=== PATIENT | female | born 1975 | race Caucasian/White ===

== ENCOUNTER 2017-01-02 22:06 | Emergency (ER) | payer MEDICAID ==
[2017-01-02 22:06] VITALS: BP 153/89; PULSE 102; RESP 20; TEMP 98.8; O2SAT 100
== END 2017-01-02 22:40 | disposition left against medical advice (07) ==
LOC: NED 22:06
DX: R10.9 Unspecified abdominal pain (principal)
CPT/HCPCS: 99281

== ENCOUNTER 2017-02-24 18:44 | Emergency (ER) | payer MEDICAID ==
[2017-02-24 18:45] VITALS: BP 142/85; PULSE 99; RESP 20; TEMP 97.8; O2SAT 100
[2017-02-24] MEDS ORDERED: ONDANSETRON HCL 4 MG/2 ML VIAL IV PUSH ONE (19:30)
[2017-02-24] MEDS ORDERED: MORPHINE SULFATE 4 MG/ML INJ IV PUSH ONE ×2 (19:30→21:30)
--- NOTE | 2017-02-24 21:03 | RADRPT ---
EXAM DATE/TIME: 02/24/2017 20:33 [place] COMPARISON: No previous studies available for comparison. INDICATIONS : Back pain. ORAL CONTRAST: No oral contrast ingested. RADIATION DOSE: 9.77 CTDIvol (mGy) MEDICAL HISTORY : None SURGICAL HISTORY : section. ENCOUNTER: Initial ACUITY: 1 day PAIN SCALE: 10/10 LOCATION: [facility] TECHNIQUE: Volumetric scanning of the abdomen and pelvis was performed. Using automated exposure control and ad justment of the mA and/or kV according to patient size, radiation dose was kept as low as reasonably achievable to obtain optimal diagnostic quality images. DICOM format image data is available electro nically for review and comparison. FINDINGS: LOWER LUNGS: The visualized lower lungs are clear. LIVER: Homogeneous density without lesion. There is no dilation of the biliary tree. No calcified gallston es. SPLEEN: Normal size without lesion. PANCREAS: Within normal limits. KIDNEYS: There is a 4 mm calcification in the right upper kidney representing either a cortical calcification or nonobstructing stone. There is a 2.4 cm low-density mass seen in the superior medial right kidney. This measures water density on this noncontrast CT examination. No hydronephrosis is seen on either side. ADRENAL GLANDS: Within normal limits. VASCULAR: There is no aortic aneurysm. BOWEL/MESENTERY: The stomach, small bowel, and colon demonstrate no acute abnormality. There is no free intraperitone al air or fluid. The appendix is normal. ABDOMINAL WALL: Within normal limits. RETROPERITONEUM: There is no lymphadenopathy. BLADDER: No wall thickening or mass. REPRODUCTIVE: Within normal limits. There are calcifications in the pelvis likely related to phleboliths. A definit e ureteral stone is not seen. INGUINAL: There is no lymphadenopathy or hernia. MUSCULOSKELETAL: There is disc space loss of height at the L4-L5 and L5-S1 level with disc bulging and marginal osteop hytes. CONCLUSION: 1. No acute abnormality seen. 2. 4 mm calcification at the right upper kidney representing either a cortical calcification or nonob structing stone. 3. 2.4 cm nonspecific low density mass in the superior-medial right kidney. It likely represents a cy st. 4. Degenerative change at the lower lumbar spine. Cyrus Woodard MD on February 24, 2017 at 20:55 Board Certified Radiologist. This report was verified electronically.
[2017-02-24 21:05] VITALS: BP 128/74; PULSE 98; RESP 16; O2SAT 99
[2017-02-24 21:25] LABS: BASOPHIL % 0.5 % (0.0-2.0); EOSINOPHIL # 0.2 TH/MM3 (0-0.4); EOSINOPHIL % 1.9 % (0.0-4.0); HEMATOCRIT 38.2 % (35.0-46.0); HEMO FLAGS DIFF FINAL; LYMPHOCYTE # 2.3 TH/MM3 (1.0-4.8); MEAN CELL VOLUME 90.9 FL (80.0-100.0); MEAN CORPUSCULAR HEMOGLOBIN 31.2 PG (27.0-34.0); MEAN CORPUSCULAR HGB CONC 34.3 % (32.0-36.0); MONO % 6.1 % (0.0-8.0); NEUT % 66.5 % (16.0-70.0); PLATELET COUNT 246 TH/MM3 (150-450); RED CELL DISTRIBUTION WIDTH 12.7 % (11.6-17.2)
--- NOTE | 2017-02-24 21:28 | PD ---
HPI Chief Complaint: Flank/Kidney Pain Time Seen by Provider: 19:13 Travel History International Travel<30 days: No Contact w/Intl Traveler<30days: No Traveled to known affect area: No History of Present Illness HPI 41-year-old female that presents to the ED for evaluation of lower back pain and urinary symptoms as well as vaginal discharge. Per patient she's had this since 1:00 today. She denies any chest pain or shortness of breath. No nausea or vomiting. Per patient she's never had pain like this before. Per patient she's had some discharge as well and it is foul-smelling. Her urine is also foul-smelling. She states the pain is 10 out of 10. She denies any injuries. No bowel movement issues. She states that she currently has a boyfriend and she is not sure if he gave her something. He has not seen anybody for this. Pain mainly on the lower back but also on the front. Has not taken anything for this. PFSH Past Medical History Bipolar Disorder: Yes Diminished Hearing: No Hepatitis: Yes (C) ?: Not : 2 Para: 2 Past Surgical History Section: Yes Gynecologic Surgery: Yes (C- SECTION) Social History Alcohol Use: No Tobacco Use: Yes (6 cigarettes) Substance Use: No Allergies-Medications (Allergen,Severity, Reaction): Coded Allergies: No Known Allergies (Unverified Adverse Reaction, Unknown, 02/24/17) Reported Meds & Prescriptions Reported Meds & Active Scripts Active Tramadol (Tramadol HCl) 50 Mg Tab 50 Mg PO Q6H PRN Ibuprofen 800 Mg Tab 800 Mg PO Q8H PRN Doxycycline Hyclate 100 Mg Cap 100 Mg PO BID 10 Days Keflex (Cephalexin) 500 Mg Cap 500 Mg PO Q12H 10 Days Review of Systems Except as stated in HPI: all other systems reviewed are Neg Physical Exam Narrative GENERAL: SKIN: Warm and dry. HEAD: Atraumatic. Normocephalic. EYES: Pupils equal and round. No scleral icterus. No injection or drainage. ENT: No nasal bleeding or discharge. Mucous membranes pink and moist. Tongue is midline. No uvula deviation. NECK: Trachea midline. No JVD. CARDIOVASCULAR: Regular rate and rhythm. No murmurs, S3, S4 RESPIRATORY: No accessory muscle use. Clear to auscultation. Breath sounds equal bilaterally. GASTROINTESTINAL: Abdomen soft, non-tender, nondistended. Hepatic and splenic margins not palpable. Pelvic exam: Patient seen with female nurse present. Patient does have whitish discharge coming from the cervix. No adnexal tenderness. No cervical tenderness. MUSCULOSKELETAL: Extremities without clubbing, cyanosis, or edema. No obvious deformities. Full range of motion of the upper and lower extremities bilaterally. 2+ pulses bilaterally. NEUROLOGICAL: Awake and alert. No obvious cranial nerve deficits. Motor grossly within normal limits. Five out of 5 muscle strength in the arms and legs. Normal speech. PSYCHIATRIC: Appropriate mood and affect; insight and judgment normal. Data Data Last Documented VS Vital Signs Date Time Temp Pulse Resp B/P (MAP) Pulse Ox O2 Delivery O2 Flow Rate FiO2 02/24/17 21:05 98 16 128/74 (92) 99 Room Air 02/24/17 18:45 97.8 Orders Orders Urinalysis - C+S If Indicated (02/24/17 18:52) Complete Blood Count With Diff (02/24/17 19:17) Basic Metabolic Panel (Bmp) (02/24/17 19:17) Wet Prep Profile (02/24/17 19:17) Gc And Chlamydia Pcr (02/24/17 19:17) Iv Access Insert/Monitor (02/24/17 19:17) Ed Urine Pregnancytest Poc (02/24/17 19:17) Morphine Inj (Morphine Inj) (02/24/17 19:30) Ondansetron Inj (Zofran Inj) (02/24/17 19:30) Ct Abd/Pel W/O Iv Contrast (02/24/17 ) Ketorolac Inj (Toradol Inj) (02/24/17 21:30) Morphine Inj (Morphine Inj) (02/24/17 21:30) Urinalysis - C+S If Indicated (02/24/17 21:19) Ceftriaxone Inj (Rocephin Inj) (02/24/17 22:15) Doxycycline (Vibramycin) (02/24/17 22:15) Ceftriaxone Inj (Rocephin Inj) (02/24/17 22:15) Urine Culture (02/24/17 21:25) Ed Discharge Order (02/24/17 22:20) Labs Laboratory Tests Test 02/24/17 20:30 02/24/17 21:20 02/24/17 21:25 White Blood Count 9.0 TH/MM3 Red Blood Count 4.20 MIL/MM3 Hemoglobin 13.1 GM/DL Hematocrit 38.2 % Mean Corpuscular Volume 90.9 FL Mean Corpuscular Hemoglobin 31.2 PG Mean Corpuscular Hemoglobin Concent 34.3 % Red Cell Distribution Width 12.7 % Platelet Count 246 TH/MM3 Mean Platelet Volume 8.2 FL Neutrophils (%) (Auto) 66.5 % Lymphocytes (%) (Auto) 25.0 % Monocytes (%) (Auto) 6.1 % Eosinophils (%) (Auto) 1.9 % Basophils (%) (Auto) 0.5 % Neutrophils # (Auto) 6.0 TH/MM3 Lymphocytes # (Auto) 2.3 TH/MM3 Monocytes # (Auto) 0.6 TH/MM3 Eosinophils # (Auto) 0.2 TH/MM3 Basophils # (Auto) 0.0 TH/MM3 CBC Comment DIFF FINAL Differential Comment Blood Urea Nitrogen 14 MG/DL Creatinine 0.79 MG/DL Random Glucose 73 MG/DL Calcium Level 8.5 MG/DL Sodium Level 136 MEQ/L Potassium Level 3.7 MEQ/L Chloride Level 103 MEQ/L Carbon Dioxide Level 27.8 MEQ/L Anion Gap 5 MEQ/L Estimat Glomerular Filtration Rate 81 ML/MIN Clue Cells (Wet Prep) NONE SEEN Vaginal Trichomonas (Wet Prep) NONE SEEN Vaginal Yeast (Wet Prep) NONE SEEN Urine Color LIGHT-YELLOW Urine Turbidity HAZY Urine pH 6.0 Urine Specific [place] 1.009 Urine Protein NEG mg/dL Urine Glucose (UA) NEG mg/dL Urine Ketones NEG mg/dL Urine Occult Blood NEG Urine Nitrite POS Urine Bilirubin NEG Urine Urobilinogen LESS THAN 2.0 MG/DL Urine Leukocyte Esterase MOD Urine RBC LESS THAN 1 /hpf Urine WBC 6 /hpf Urine Squamous Epithelial Cells <1 /hpf Urine Amorphous Sediment RARE Urine Bacteria MANY /hpf Microscopic Urinalysis Comment CULTURE INDICATED MDM Medical Decision Making Medical Screen Exam Complete: Yes Emergency Medical Condition: Yes Medical Record Reviewed: Yes Interpretation(s) Last Impressions Abdomen/Pelvis CT 02/24/17 0000 Signed Impressions: Service Date/Time: February 20:33 - CONCLUSION: 1. No acute abnormality seen. 2. 4 mm calcification at the right upper kidney representing either a cortical calcification or nonobstructing stone. 3. 2.4 cm nonspecific low density mass in the superior-medial right kidney. It likely represents a cyst. 4. Degenerative change at the lower lumbar spine. Cyrus Woodard MD CBC & BMP Diagram 02/24/17 20:30 Calcium Level 8.5 UA shows UTI wet prep negative Differential Diagnosis Vaginal discharge versus PID versus UTI versus pyelonephritis versus cystitis versus kidney stone Narrative Course 41-year-old female that presents to the ED for evaluation of back pain. Patient was properly examined and was found to have signs and symptoms of unclear etiology. Possible vaginal versus urinary. Patient does have significant discharged on exam. Labs and imaging showed UTI otherwise unremarkable. Patient does have vaginal discharge. There is some concern for PID secondary to the patient's symptoms. Patient will be started on ceftriaxone here to cover for both the UTI as well as gonorrhea. Patient will be given a prescription for doxycycline to cover for PID as well as Keflex, tramadol and ibuprofen. Told to follow up closely with PCP. See ED for any worsening symptoms. Case discussed with my attending Dr Lacey who agrees with plan. Diagnosis Primary Impression: UTI (urinary tract infection) Qualified Codes: N30.00 - Acute cystitis without hematuria Additional Impression: Vaginitis Qualified Codes: N76.0 - Acute vaginitis Patient Instructions: General Instructions, Narcotic given in the ED Additional Instructions: Take medications as prescribed. Follow-up with PCP. See ED for any worsening symptoms. Do not drink or drive while taking pain medication. Apply ice or heat as needed for pain. No sex for 2 week or until better. Always use protection. Med/Other Pt SpecificInfo: Prescription(s) given Scripts Tramadol (Tramadol) 50 Mg Tab 50 MG PO Q6H Y for PAIN, #14 TAB 0 Refills Prov: Lashae Lacey DO 02/24/17 Ibuprofen (Ibuprofen) 800 Mg Tab 800 MG PO Q8H Y for PAIN SCALE 1 TO 10, #20 TAB 0 Refills Prov: Lashae Lacey DO 02/24/17 Doxycycline Hyclate (Doxycycline Hyclate) 100 Mg Cap 100 MG PO BID for Infection for 10 Days, #20 CAP 0 Refills Prov: Lashae Lacey DO 02/24/17 Cephalexin (Keflex) 500 Mg Cap 500 MG PO Q12H for Infection for 10 Days, #20 CAP 0 Refills Prov: Lashae Lacey DO 02/24/17 Disposition: 01 DISCHARGE HOME Condition: Stable Edil Jeffers Feb 24, 2017 21:28
[2017-02-24] MEDS ORDERED: KETOROLAC TROMETHAMINE 30 MG/ML (IVP) VIAL IV PUSH ONE (21:30)
[2017-02-24 21:54] LABS: BICARBONATE 27.8 MEQ/L (21.0-32.0); POTASSIUM 3.7 MEQ/L (3.5-5.1)
[2017-02-24 22:04] LABS: BACTERIA, URINE MANY /hpf; BLOOD, URINE NEG (NEG); COMMENT (UR) CULTURE INDICATED; CULTURE IF INDICATED CULTURE INDICATED; GLUCOSE,URINE NEG (NEG); KETONE, URINE NEG (NEG); NITRITE,URINE POS (NEG); SQUAMOUS EPITHELIAL CELL URINE <1 /hpf (0-5); URINE COLOR LIGHT-YELLOW (YELLW/STRAW)
[2017-02-24] MEDS ORDERED: DOXYCYCLINE HYCLATE 100 MG CAP PO ONE (22:15)
[2017-02-24] MEDS ORDERED: cefTRIAXone INJ 250 MG in SODIUM CHLORIDE 0.9% INJ 25 ML IV ONE (22:15)
[2017-02-24] MEDS ORDERED: cefTRIAXone INJ 1,000 MG in SODIUM CHLORIDE 0.9% INJ 100 ML IV ONE (22:15)
[2017-02-24] MEDS ORDERED: CEPH-460 PO (22:19)
[2017-02-24] MEDS ORDERED: DOXY100C PO (22:19)
[2017-02-24] MEDS ORDERED: IBUP1TAB7 PO (22:19)
[2017-02-24] MEDS ORDERED: HYDR-3516 PO (22:19)
[2017-02-24] MEDS ORDERED: TRAM50TA PO (22:21)
[2017-02-25 01:46] LABS: CHLAMYDIA PCR NOT DETECTED (NOT DETECT); NEISSERIA PCR NOT DETECTED (NOT DETECT)
== END 2017-02-24 23:23 | disposition home or self-care (01) ==
LOC: NEPD 18:44
DX: N39.0 Urinary tract infection, site not specified (principal); B96.20 Unspecified Escherichia coli [E. coli] as the cause of diseases classified elsewhere; N76.0 Acute vaginitis; N20.0 Calculus of kidney; M51.36 Other intervertebral disc degeneration, lumbar region; F31.9 Bipolar disorder, unspecified; F17.210 Nicotine dependence, cigarettes, uncomplicated; Z86.19 Personal history of other infectious and parasitic diseases
CPT/HCPCS: 74176; 80048; 81001; 84703; 85025; 87077; 87086; 87186; 87210; 87491; 87591; 96374; 96375; 96376; 99285; J0696; J1885; J2270; J2405